=== PATIENT | female | born 1950 | race Caucasian/White ===

== ENCOUNTER 2024-06-16 00:05 | Emergency (ER) | payer OTHER, SELFPAY ==
[2024-06-16] MEDS ORDERED: Ibuprofen 200 MG TAB ONE (01:55)
[2024-06-16] MEDS ORDERED: Cyclobenzaprine 10 MG TAB ONE (01:55)
== END 2024-06-16 02:00 | disposition home or self-care (01) ==
LOC: NAV ERS 00:05
DX: S16.1XXA Strain of muscle, fascia and tendon at neck level, initial encounter (principal); S00.93XA Contusion of unspecified part of head, initial encounter; I10 Essential (primary) hypertension; W18.09XA Striking against other object with subsequent fall, initial encounter
CPT/HCPCS: 70450